=== PATIENT | female | born 1995 | race Two or more races ===

== ENCOUNTER 2017-11-28 08:34 | Emergency (ER) | payer MEDICAID ==
[~2017-11-28] VITALS: Ht 160 cm; Wt 65.0 kg
[2017-11-28 08:36] VITALS: BP 136/92
[2017-11-28] MEDS ORDERED: IBUPROFEN 200 MG TABLET PO ONE (09:00)
[2017-11-28] MEDS ORDERED: IBUPROFEN 200 MG TABLET ONE (09:14)
[2017-11-28] MEDS ORDERED: INSULIN REGULAR 100 UNITS/ML, 3ML VIAL ONE (09:25)
== END 2017-11-28 09:38 | disposition home or self-care (01) ==
LOC: ED 09:15
DX: J02.8 Acute pharyngitis due to other specified organisms (principal); B97.89 Other viral agents as the cause of diseases classified elsewhere
CPT/HCPCS: 87081; 87147; 87880; 99284

== ENCOUNTER 2018-02-02 11:10 | Emergency (ER) | payer MEDICAID ==
[~2018-02-02] VITALS: Ht 160 cm; Wt 64.9 kg
[2018-02-02 13:10] VITALS: BP 132/84
== END 2018-02-02 14:35 | disposition home or self-care (01) ==
LOC: ED 13:44
DX: Z32.01 Encounter for pregnancy test, result positive (principal)
CPT/HCPCS: 36415; 76801; 84702; 99284

== ENCOUNTER 2018-06-01 19:41 | Emergency (ER) | payer MEDICAID ==
--- NOTE | 2018-06-01 19:46 | NUR ---
CALLED L&D TO DISCUSS PT SYMPTOMS--PER L&D, PT TO BE BROUGHT TO FLOOR FOR CLEARANCE. PT TO L&D VIA FERNANDO. Addendum: 06/01/18 at 1947 by LEANDER CALLED L&D TO DISCUSS PT SYMPTOMS--PER L&D, PT TO BE BROUGHT TO FLOOR FOR CLEARANCE. PT TO L&D VIA W/CCaridad
[2018-06-01] MEDS ORDERED: PREN1TAB60 PO (20:16)
== END 2018-06-01 19:58 | disposition home or self-care (01) ==
LOC: ED 19:47
DX: O26.892 Other specified pregnancy related conditions, second trimester (principal); Z3A.23 23 weeks gestation of pregnancy; R10.9 Unspecified abdominal pain; M54.9 Dorsalgia, unspecified
CPT/HCPCS: 99281

== ENCOUNTER 2018-06-01 19:55 | Outpatient (CLI) | payer MEDICAID ==
[~2018-06-01] VITALS: Ht 162.6 cm; Wt 70.1 kg
[2018-06-01 20:10] VITALS: BP 122/72
[2018-06-01] MEDS ORDERED: PREN1TAB60 PO (20:16)
[2018-06-01 20:53] LABS: MICROSCOPIC NOT IND
[2018-06-01 21:05] LABS: AMPHETAMINE SCREEN, URINE Negative (Negative); BARBITURATE SCREEN, URINE Negative (Negative); BENZODIAZEPINE SCREEN, URINE Negative (Negative); CANNABINOID SCREEN, URINE Positive (Negative); COCAINE SCREEN, URINE Negative (Negative); METHADONE SCREEN, URINE Negative (Negative); OPIATE SCREEN, URINE Negative (Negative)
[2018-06-01 21:19] LABS: BASOPHILS # (AUTO) 0.03 x10^3/uL (0-0.1); BASOPHILS % (AUTO) 0 % (0-1); EOSINOPHILS # (AUTO) 0.27 x10^3/uL (0-0.4); EOSINOPHILS % (AUTO) 2 % (1-7); LYMPHOCYTES # (AUTO) 2.28 x10^3/uL (1-3.4); LYMPHOCYTES % (AUTO) 17 % (22-44); MD NO; MEAN CORPUSCULAR HEMOGLOBIN 31.1 pg (27.0-34.8); MEAN CORPUSCULAR HGB CONC 34.3 g/dL (32.4-35.8); MEAN CORPUSCULAR VOLUME 90.8 fL (80-100); MEAN PLATELET VOLUME 7.5 fL (7.4-10.4); MONOCYTES % (AUTO) 8 % (2-9); NEUTROPHILS # (AUTO) 9.47 x10^3/uL (1.8-6.8); NEUTROPHILS % (AUTO) 72 % (42-75); PLATELET COUNT 251 x10^3/uL (130-400); RED BLOOD COUNT 3.61 x10^6/uL (3.82-5.3); RED CELL DISTRIBUTION WIDTH 12.8 % (9.6-15.2)
[2018-06-01 21:32] LABS: ALANINE AMINOTRANSFERASE 20 U/L (12-78); ALBUMIN 2.7 g/dL (3.4-5.0); ANION GAP 7 mmol/L (5-15); CALCIUM 8.5 mg/dL (8.5-10.1); CHLORIDE 111 mmol/L (98-107); CREATININE 0.66 mg/dL (0.55-1.02)
[2018-06-01 21:35] LABS: ALKALINE PHOSPHATASE 72 U/L (45-117); BILIRUBIN,TOTAL 0.2 mg/dL (0.2-1.0); TOTAL PROTEIN 6.4 g/dL (6.4-8.2)
== END 2018-06-01 23:59 | disposition home or self-care (01) ==
LOC: LDOP 19:55
PROVIDERS: ATTEND Obstetrics & Gynecology
DX: O26.892 Other specified pregnancy related conditions, second trimester (principal); R10.9 Unspecified abdominal pain; Z3A.22 22 weeks gestation of pregnancy
CPT/HCPCS: 36415; 59025; 76705; 80053; 80307; 81003; 85025; 87086; 99211; G0463